=== PATIENT | male | born 1995 | race Two or more races ===

== ENCOUNTER 2020-02-24 18:46 | Emergency (ER) | payer OTHER ==
[~2020-02-24] VITALS: Ht 162.6 cm; Wt 79.4 kg
[2020-02-24 20:10] VITALS: BP 135/92
== END 2020-02-24 20:32 | disposition home or self-care (01) ==
LOC: ER 18:48
DX: G51.0 Bell's palsy (principal); H65.91 Unspecified nonsuppurative otitis media, right ear

== ENCOUNTER 2020-02-28 20:18 | Emergency (ER) | payer OTHER ==
[~2020-02-28] VITALS: Ht 172.7 cm; Wt 77.1 kg
[2020-02-28 22:00] VITALS: BP 120/96
[2020-02-28 22:24] LABS: Basophils # (auto) 0 10 ^3/uL (0-0.2); Basophils % (auto) 0.2 % (0.0-2.0); Eosinophils # (auto) 0 10 ^3/uL (0-0.8); Hematocrit 46.8 % (41.0-53.0); Hemoglobin 15.9 g/dL (13.5-17.5); Lymphocytes # (auto) 1.1 10 ^3/uL (0.4-5.4); Lymphocytes % (auto) 11.8 % (10.0-50.0); Mean Corpuscular Hemoglobin 29.3 pg (28.0-32.0); Mean Corpuscular Hgb Conc. 33.9 g/dL (32.0-36.0); Mean Corpuscular Volume 86.3 fL (80.0-100.0); Monocytes # (auto) 0.4 10 ^3/uL (0-1.3); Monocytes % (auto) 4.4 % (0.0-12.0); Neutrophils # (auto) 7.8 10 ^3/uL (1.6-8.6); Neutrophils % (auto) 83.6 % (37.0-80.0); Platelet Count (auto) 367 10^3/uL (140-450); Red Blood Cells 5.42 10^6/uL (4.5-5.90); Red Cell Distribution Width 13.5 % (11.8-14.3); White Blood Cell 9.3 10^3/uL (4.4-10.8)
[2020-02-28 22:48] LABS: Albumin 4.5 g/dL (3.4-5.0); Anion Gap 5 (5-15); Blood Urea Nitrogen 12 mg/dL (7-18); Calcium 9.9 mg/dL (8.5-10.1); Carbon Dioxide 29 mmol/L (21-32); Chloride 107 mmol/L (98-107); Glucose 121 mg/dL (74-106); Potassium 3.6 mmol/L (3.5-5.1); Sodium 141 mmol/L (136-145)
[2020-02-28 22:54] LABS: Alanine Aminotransferase 34 U/L (16-61); Alkaline Phosphatase 117 U/L (45-117); Aspartate Aminotransferase 16 U/L (15-37); BUN/Creatinine Ratio 12.6; Bilirubin, Total 0.4 mg/dL (0.2-1.0); GFR African American 126 mL/min; GFR Non-African American 104 mL/min; INR 1.07 (0.9-1.15); Partial Thromboplastin Time 23.7 sec (23.0-31.2); Total Protein 8.6 g/dL (6.4-8.2)
[2020-02-28] MEDS ORDERED: SODIUM CHLORIDE 0.9% 1,000 ML IV ONE (23:00)
[2020-02-28] MEDS ORDERED: ONDANSETRON HCL 4 MG/2 ML VIAL IV ONE (23:00)
== END 2020-02-29 00:16 | disposition home or self-care (01) ==
LOC: ER 20:21
DX: R10.13 Epigastric pain (principal); F11.10 Opioid abuse, uncomplicated; R11.2 Nausea with vomiting, unspecified; Z20.828 Contact with and (suspected) exposure to other viral communicable diseases
CPT/HCPCS: 36415; 71045; 74176; 80053; 84484; 85025; 85610; 85730; 87426